=== PATIENT | female | born 1985 | race Caucasian/White ===

== ENCOUNTER 2019-04-21 06:58 | Inpatient (IN) | payer OTHER ==
--- NOTE | 2019-04-19 12:18 | HP ---
DATE OF ADMISSION: 04/27/2019 HISTORY OF PRESENT ILLNESS: The patient is a 33-year-old with para 0, 0-0-2-0 who is with a due date of 04/27/2019 with breech presentation now scheduled for primary for breech presentation. PAST MEDICAL HISTORY: Consistent with sleep apnea as well as mild anemia. History of elevated blood pressure; however, did not declare definite hypertension or preeclampsia. PAST GYNECOLOGICAL HISTORY: She denies any history of cysts, fibroids or STDs. MEDICATIONS: 1. She is taking iron twice a day. 2. Protonix. 3. vitamins. ALLERGIES: NO KNOWN ALLERGIES. SOCIAL HISTORY: She denies toxic habits. PAST OBSTETRICAL HISTORY: Consistent with 1 induced and 1 spontaneous . REVIEW OF SYSTEMS: sleep apnea. LABORATORY TESTS: Records consistent with HIV negative, hepatitis B, hepatitis C was negative. T4, T3, TSH was normal. Blood type is A positive, antibody negative, rubella immune, rubella equivocal, VDRL nonreactive. Urine culture was negative. Gonorrhea and chlamydia was negative and GCT was 136. GTT was normal. Last CBC on 03/29/2019 consistent hemoglobin of 12.2, hematocrit of 35.9, and GBS was positive. PHYSICAL EXAMINATION: GENERAL: I saw the patient last on 04/19/2019. At that time, she was 38 weeks and 6 days. VITAL SIGNS: Her blood pressure was 137/66+1 protein in the urine. Urine was negative for glucose, she appeared to be in no apparent distress. HEART: Regular rate and rhythm. LUNGS: Clear to auscultation bilaterally. ABDOMEN: Gravid, nontender. EXTREMITIES: No clubbing, cyanosis, or edema. PELVIC: Deferred. Breech per ultrasound. PLAN: This is a 33-year-old with para 0-0-2-0 at 38 weeks and 6 days scheduled for primary for breech presentation at 39 weeks and 1 day. Patient understands the risks of the procedure such as risk of bleeding, infection, damage to internal organs, transfusion, anesthesia. She understands the benefit of the procedure would be to decrease maternal morbidity and mortality secondary to breech delivery. She has been attempting to do a vaginal trial which I do not recommend. All questions answered. Dictated By: RAMBO FERNANDEZ MD, RA/DIANE Conf#: [id number] DID#: [id number] MTDD
[~2019-04-21] VITALS: Ht 162.6 cm; Wt 91.8 kg
[2019-04-21] MEDS ORDERED: OXYTOCIN 30 UNITS/LR 500 ML IV PRN ×2 (07:30→10:00)
[2019-04-21] MEDS ORDERED: CEFAZOLIN 2 GM/50 ML (PMX) 50 ML IVPB SCH (07:30)
[2019-04-21] MEDS ORDERED: METHYLERGONOVINE 0.2 MG INJ IM PRN ×2 (07:30→10:00)
[2019-04-21] MEDS ORDERED: OXYTOCIN 30 UNITS/LR 500 ML IV SCH ×2 (07:30→09:50)
[2019-04-21] MEDS ORDERED: MISOPROSTOL 200 MCG TAB PR PRN ×2 (07:30→10:00)
[2019-04-21] MEDS ORDERED: CARBOPROST 250 MCG INJ IM PRN ×2 (07:30→10:00)
[2019-04-21 07:48] VITALS: Ht 162.6 cm; Wt 91.8 kg
[2019-04-21] MEDS: LACTATED RINGER'S 1,000 ML IV SCH ×2 (08:28→15:25)
[2019-04-21] MEDS ORDERED: CITRIC ACID/NA CITRATE 30 ML CUP PO ONE (08:30)
[2019-04-21] MEDS ORDERED: OXYTOCIN 30 UNITS/LR 500 ML BAG IV ONE (09:48)
[2019-04-21] MEDS ORDERED: LIDOCAINE 1%/EPI 30 ML INJ ONE (09:48)
[2019-04-21] MEDS ORDERED: morphine SULFATE/PF (10 MG/10 ML) INJ ONE (09:48)
[2019-04-21] MEDS ORDERED: EPHEDrine 25 MG/5 ML SYG ONE (09:48)
[2019-04-21] MEDS ORDERED: ONDANSETRON 4 MG INJ ONE (09:57)
[2019-04-21] MEDS ORDERED: NACL 0.9% 3 ML SYG IV SCH (10:00)
[2019-04-21] MEDS ORDERED: KETOROLAC 30 MG INJ IV PRN ×2 (10:00→10:30)
[2019-04-21] MEDS ORDERED: LACTATED RINGER'S 1,000 ML IV ONE (10:10)
[2019-04-21] MEDS: CEFAZOLIN 1 GM/50 ML (PMX) 50 ML IVPB SCH ×2 (10:10→18:08)
--- NOTE | 2019-04-21 10:10 | PREAC ---
Date/Time of Note Date/Time of Note DATE: 04/21/19 TIME: 10:05 Anesthesia Eval and Record Evaluation Time Pre-Procedure Interview DATE: 04/21/19 TIME: 09:40 Age 33 Sex female NPO: 8 hrs Preoperative diagnosis iup @ 39 wks., , contractions, h/o gerd, gomez, breech presentation Planned procedure primary c/s Past Medical History Past Medical History: Includes Pulm: Sleep Apnea GI: GERD : : (1), Para: (0), Gestational age: (39.5 wks.) Surgery & Anesthesia Issues No known issue Meds Anticoagulation: No Beta Storm within 24 hr: No Reason Beta Storm not given: Pt. not on B-Storm Current Medications Lactated Ringer's 1,000 ml @ 125 mls/hr Q8H IV Last administered on 04/21/19at 08:28; Admin Dose 125 MLS/HR; Start 04/21/19 at 07:25 Cefazolin Sodium/ Dextrose 50 ml @ 100 mls/hr ONCE IVPB ; Start 04/21/19 at 07:30 Oxytocin/Lactated Ringer's 500 ml @ 125 mls/hr POST IV ; Start 04/21/19 at 07:30 Misoprostol (Cytotec) 1,000 mcg ONCE PRN LA .VAGINAL BLEEDING; Start 04/21/19 at 07:30 IV Flush (NS 3 ml) 3 ml PER PROTOCOL IV ; Start 04/21/19 at 10:00 Cefazolin Sodium 50 ml @ 100 mls/hr Q8H IVPB ; Start 04/21/19 at 10:00; Stop 04/22/19 at 02:29 Oxytocin/Lactated Ringer's 500 ml @ 50 mls/hr Q10H IV ; Start 04/21/19 at 09:50; Stop 04/21/19 at 19:49 Acetaminophen/ Hydrocodone Bitart ([place] (5/325)) 1 tab Q4H PRN PO .PAIN 4-6; Start 04/21/19 at 10:00 Acetaminophen/ Hydrocodone Bitart ([place] (5/325)) 2 tab Q4H PRN PO .PAIN 7-10; Start 04/21/19 at 10:00 Ibuprofen (Motrin) 600 mg Q6 PRN PO pain; Start 04/21/19 at 10:00; Status Hold Oxytocin/Lactated Ringer's 500 ml @ 0 mls/hr ONCE PRN IV .VAGINAL BLEEDING; Start 04/21/19 at 10:00 Methylergonovine Maleate (Methergine) 0.2 mg ONCE PRN IM .VAGINAL BLEEDING; Start 04/21/19 at 10:00 Carboprost Tromethamine (Hemabate) 250 mcg ONCE PRN IM .VAGINAL BLEEDING; Start 04/21/19 at 10:00 Misoprostol (Cytotec) 1,000 mcg ONCE PRN LA .VAGINAL BLEEDING; Start 04/21/19 at 10:00 Ketorolac Tromethamine (Toradol) 30 mg Q6H PRN IV PAIN LEVEL 1-3; Start 04/21/19 at 10:00 Meds reviewed: Yes Allergies Coded Allergies: No Known Allergy (Unverified , 04/21/19) Allergies Reviewed: Yes Labs/Studies Labs Reviewed: Reviewed by anesthesiologist Result Diagram: 04/21/19 0520 Laboratory Tests 04/21/19 05:20 Blood Bank Test 04/21/19 05:20 Antibody Screen NEGATIVE Blood Type A POSITIVE Rh Immune Globulin Candidate NO test: Positive Studies: ECG (n/a), CXR (n/a) Pre-procedure Exam Airway: Adequate mouth opening, Adequate thyromental dist Mallampati: Mallampati II Teeth: Normal Lung: Normal Heart: Normal ASA Physical Status ASA physical status: 3 Emergency: E Planned Anesthetic General/MAC: MAC Neuraxial: Spinal Planned Pain Management Sub-arachniod narcotics, Parenteral pain med, Local by surgeon Pre-operative Attestations Prior to commencing anesthesia and surgery, the patient was re-evaluated, there was verification of: *The patient's identity *The results of appropriate recent lab work and preoperative vital signs *The above evaluation not changing prior to induction *Anesthetic plan, risk benefits, alternative and complications discussed with patient/family; questions answered; patient/family understands, accepts and wishes to proceed. Tree Topper used KENNEDY BELLO MD Apr 21, 2019 10:10
[2019-04-21] MEDS ORDERED: OXYTOCIN 10 UNIT INJ ONE (10:17)
[2019-04-21] MEDS ORDERED: METOCLOPRAMIDE 10 MG INJ ONE (10:17)
[2019-04-21] MEDS ORDERED: MIDAZOLAM 1 MG/ML 2 ML INJ ONE (10:17)
[2019-04-21] MEDS ORDERED: LR IV ONE (10:27)
[2019-04-21] MEDS ORDERED: OXYTOCIN IV ONE (10:27)
[2019-04-21] MEDS ORDERED: HYDROmorphONE 0.5 MG/0.5 ML SYG IV PRN ×2 (10:30)
[2019-04-21] MEDS ORDERED: DIPHENHYDRAMINE 50 MG INJ IV PRN ×2 (10:30)
[2019-04-21] MEDS ORDERED: MEPERIDINE 25 MG INJ IV PRN (10:30)
[2019-04-21] MEDS ORDERED: EPHEDrine 25 MG/5 ML SYG IV PRN (10:30)
[2019-04-21] MEDS ORDERED: ONDANSETRON 4 MG INJ IV PRN (10:30)
[2019-04-21] MEDS ORDERED: NALBUPHINE HCL (10 MG/1 ML) INJ IV PRN (10:30)
[2019-04-21] MEDS ORDERED: ZOLPIDEM 5 MG TAB PO PRN (10:30)
[2019-04-21] MEDS ORDERED: NALOXONE (0.4 MG/ML) INJ IV PRN (10:30)
[2019-04-21] MEDS ORDERED: MIDAZOLAM 1 MG/ML 2 ML INJ IV PRN (10:30)
--- NOTE | 2019-04-21 10:44 | QN ---
Documentation Comment see op note [id number] RAMBO FERNANDEZ M.D. Apr 21, 2019 10:44
[2019-04-21 13:30] VITALS: BP 127/77; PULSE 81; RESP 19
[2019-04-21 14:30] VITALS: BP 123/67; PULSE 72; RESP 18
[2019-04-21 16:00] VITALS: BP 127/71; PULSE 98; RESP 20
[2019-04-21] MEDS ORDERED: BUPROPION 75 MG TAB PO ONE (16:30)
--- NOTE | 2019-04-21 17:14 | PAC ---
Date/Time of Note Date/Time of Note DATE: 04/21/19 TIME: 17:14 Post-Anesthesia Notes Post-Anesthesia Note Last documented vital signs Vital Signs Date Temp Pulse Resp B/P (MAP) Pulse Ox O2 O2 Flow FiO2 Time Delivery Rate 04/21/19 98.4 98 20 127/71 99 Room Air 16:00 (89) Activity: WNL Respiratory function: WNL Cardiovascular function: WNL Mental status: Baseline Pain reasonably controlled: Yes Hydration appropriate: Yes Nausea/Vomiting absent: Yes KENNEDY BELLO MD Apr 21, 2019 17:14
[2019-04-21] MEDS: BUPROPION (XL) 150 MG TAB PO SCH (18:08)
[2019-04-21 19:50] VITALS: BP 124/61; PULSE 98; RESP 18
[2019-04-21 23:50] VITALS: BP 115/62; PULSE 101; RESP 19
--- NOTE | 2019-04-22 00:20 | OPPN ---
Date/Time of Note Date/Time of Note DATE: 04/22/19 TIME: 00:18 Anesthesia Follow up Anesthesia Follow up Last documented vital signs Vital Signs Date Temp Pulse Resp B/P (MAP) Pulse Ox O2 O2 Flow FiO2 Time Delivery Rate 04/21/19 98.4 98 18 124/61 97 Room Air 19:50 (82) Respiratory function: WNL Cardiovascular function: WNL Comments S: pt. is pod #1. min. bt pain. min. n/v. min. need for bt pain meds ie nsaids/opiates. ambulating. O: vss. afeb. A: min. bt pain. sec. to it msO4. P: no complications. KENNEDY BELLO MD Apr 22, 2019 00:20
--- NOTE | 2019-04-22 00:31 | OPR ---
DATE OF OPERATION: 04/21/2019 PREOPERATIVE DIAGNOSIS: A 33-year-old with para 0, 0-0-2-0 at 39 weeks , breech presentatio n. POSTOPERATIVE DIAGNOSIS: A 33-year-old with para 0, 0-0-2-0 at 39 weeks , breech presentati on. PROCEDURE: Primary via Pfannenstiel skin incision. SURGEON: Dr. Fernandez. SENIOR SALES OPERATIONS MANAGER: Dr. Lance. ANESTHESIA: Spinal anesthesia, 2 grams of Ancef was given. COMPLICATIONS: None. FINDINGS: Baby girl, martina breech. Normal appearing ovaries and the tubes and uterus. DISPOSITION: Stable to recovery room. ESTIMATED BLOOD LOSS: 800 mL. URINE OUTPUT: Clear urine at the end of the end of the procedure. Two grams of Ancef were given prior to the procedure. DESCRIPTION OF PROCEDURE: After the risks, benefits and alternatives were discussed with the patient , the patient signed consent. She was taken to the operating room where spinal anesthesia was found to be adequate. She was then prepared and draped in normal sterile fashion in dorsal supine position with a leftward tilt. A Pfannenstiel skin incision then made with a scalpel and carried throughout the underlying layer of the fascia with the Bovie. The fascia was then incised medially, extended la terally using the Bovie instrument. The fascia was then superiorly and inferiorly from the rectus abdominal muscles using the Bovie instrument. Rectus abdominal muscles were then l aterally. The peritoneum entered sharply, stretched laterally manually and sharply. Bladder flap wa s then created using the Metzenbaum scissors. A bladder blade was then inserted to protect the bladd er. Uterus incision then created using the scalpel and carried laterally manually. was found to be in martina breech presentation, was removed without any complications. Nose and mouth suctioned , cord clamped and cut. Infant was handed off to the waiting nurse. Cord blood collected. Placenta was removed manually. Uterus then exteriorized and cleared of all clots and debris. Uterus incisio n was then repaired using #1 chromic stitch and then in running locked fashion. Good approximation a nd good hemostasis was noted. Gutters were then cleared of all clots and debris. The uterus was the n placed back into the pelvis. Rectus abdominal muscles and peritoneum were then reapproximated usin g 2-0 chromic stitch interrupted figure. Fascia was then reapproximated using #1 Vicryl stitch in a running fashion. Subcutaneous layer irrigated and dried. Subcutaneous layer was then reapproximated using 2-0 plain stitch in interrupted figure. Skin was then closed using the stapler. Abdominal pa ds placed in the incision to create tamponade. All instrument count, lap count, and needle count fou nd to be correct x3. The patient was taken back to the recovery room in stable condition and awakene d. Dictated By: RAMBO FERNANDEZ MD, RA/DIANE Conf#: [id number] DID#: [id number]
[2019-04-22] MEDS: CEFAZOLIN 1 GM/50 ML (PMX) 50 ML IVPB SCH (01:52)
[2019-04-22] MEDS: LACTATED RINGER'S 1,000 ML IV SCH (01:54)
[2019-04-22 03:58] VITALS: BP 124/72; PULSE 95; RESP 19
[2019-04-22 08:52] VITALS: BP 119/65; PULSE 94; RESP 18
[2019-04-22] MEDS: BUPROPION (XL) 150 MG TAB PO SCH (09:06)
[2019-04-22] MEDS ORDERED: CEFAZOLIN 1 GM/50 ML (PMX) 50 ML IVPB SCH (10:00)
--- NOTE | 2019-04-22 11:41 | QN ---
Documentation Comment pt is feeling well CBC stable VSS Plan continue current care RAMBO CLARK M.D. Apr 22, 2019 11:41
[2019-04-22 13:00] VITALS: BP 121/65; PULSE 95; RESP 17
[2019-04-22 15:15] VITALS: BP 122/59; PULSE 98; RESP 17; RESP 18
[2019-04-22] MEDS: IBUPROFEN 600 MG TAB PO PRN (15:19)
[2019-04-22] MEDS ORDERED: WITCH HAZEL/GLYCERIN PAD PR PRN (16:30)
[2019-04-22] MEDS ORDERED: BENZOCAINE 20% 56 ML SPRAY TOP PRN (16:30)
[2019-04-22] MEDS: LANOLIN HPA 1 PKT TOP PRN (18:44)
[2019-04-22 19:35] VITALS: BP 134/70; PULSE 110; RESP 19
[2019-04-22] MEDS: HYDROCODONE/APAP (5/325) TAB PO PRN (19:35)
[2019-04-23] MEDS: HYDROCODONE/APAP (5/325) TAB PO PRN ×4 (00:06→21:16)
[2019-04-23 03:30] VITALS: BP 125/74; PULSE 98; RESP 20
[2019-04-23 08:00] VITALS: BP 134/80; PULSE 94; RESP 18
[2019-04-23] MEDS: LANOLIN HPA 1 PKT TOP PRN (08:30)
[2019-04-23] MEDS: BUPROPION (XL) 150 MG TAB PO SCH (08:31)
[2019-04-23 16:00] VITALS: BP 134/86; PULSE 94; RESP 18
--- NOTE | 2019-04-23 19:14 | QN ---
Documentation Comment see d/c note [id number] RAMBO FERNANDEZ M.D. Apr 23, 2019 19:14
[2019-04-23 19:30] VITALS: BP 136/78; PULSE 98; RESP 18
[2019-04-23] MEDS: IBUPROFEN 600 MG TAB PO PRN (20:00)
--- NOTE | 2019-04-23 23:33 | DS ---
DATE OF ADMISSION: 04/21/2019 DATE OF DISCHARGE: HOSPITAL COURSE: The patient had a 2 days ago. Please see operative report for the surger y. On postop day #1, she was doing well. Vital signs stable. CBC was stable. She was encouraged t o ambulate and use pain medication p.r.n. pain. Her CBC was stable. On postoperative day #2 she was doing well, passing gas, ambulating. Incision was healing well. The patient will be discharged javi e tomorrow, on postoperative day #3, with prescription for [place] and Motrin. She will come to see me in the office on Tuesday for staple removal. Dictated By: RAMBO FERNANDEZ MD, RA/DIANE Conf#: [id number] DID#: [id number]
[2019-04-24 04:35] VITALS: BP 112/56; PULSE 83; RESP 18
[2019-04-24] MEDS: IBUPROFEN 600 MG TAB PO PRN (05:33)
[2019-04-24 08:30] VITALS: BP 123/72; PULSE 92; RESP 18
[2019-04-24] MEDS: HYDROCODONE/APAP (5/325) TAB PO PRN (09:10)
[2019-04-24] MEDS: BUPROPION (XL) 150 MG TAB PO SCH (10:01)
--- NOTE | 2019-04-25 16:46 | DELSUM ---
Delivery Summary A-C Datetime Report Generated by CPN: 04/25/2019 16:46 DELIVERY PERSONNEL Stacker Attendant: Yoshree, Nataliya MATERNAL INFORMATION Delivery Anesthesia: Spinal Medications in Delivery: see anesthesia Delivery QBL (ml): 500 Placenta Cultured: No Maternal Complications: None LABOR SUMMARY EDC: 04/27/2019 00:00 No. Babies in Womb: 1 Attempted: No Labor Anesthesia: None LABOR INFORMATION Reason for Induction: Not Applicable Group B Beta Strep: Not Done Antibiotics # of Doses: 1 Antibiotics Time of Last Dose: 04/21/2019 10:10 Steroids Given: None Reason Steroids Not Administered: Not Applicable MEMBRANES Membranes Rupture Method: Artificial Rupture of Membranes: 04/21/2019 10:15 Length of Rupture (hr): 0.08 Amniotic Fluid Color: Clear Amniotic Fluid Amount: Moderate Amniotic Fluid Odor: None STAGES OF LABOR Stage 3 hr: 0 Stage 3 min: 5 CSECTION DELIVERY Primary Indication: Breech Presentation Secondary Indication: N/A CSection Urgency: Non Elective CSection Incidence: Primary Labor: No Labor Elective: Nonelective CSection Incision: Lower Uterine Transverse BABY A INFORMATION Delivery Date/Time: 04/21/2019 10:20 Method of Delivery: Born in Route : No : N/A Forceps: N/A Vacuum Extraction: N/A Shoulder Dystocia : N/A SHOULDER DYSTOCIA BABY A Delivery Date/Time: 04/21/2019 10:20 PRESENTATION/POSITION BABY A Presentation: Breech Cephalic Presentation: N/A Breech Presentation: Complete PLACENTA INFORMATION BABY A Placenta Delivery Time : 04/21/2019 10:25 Placenta Method of Delivery: Manual Removal Placenta Status: Delivered SCORES BABY A Heart Rate 1 min: >100 bpm Resp Effort 1 min: Good Cry Reflex Irritability 1 min: Cough/Sneeze/Pulls Away Muscle Tone 1 min: Active Motion Color 1 min: Body [place], Extremit Blue Resuscitation Effort 1 min: Tactile Stimulation SCORE 1 MIN: 9 Heart Rate 5 min: >100 bpm Resp Effort 5 min: Good Cry Reflex Irritability 5 min: Cough/Sneeze/Pulls Away Muscle Tone 5 min: Active Motion Color 5 min: Body [place], Extremit Blue Resuscitation Effort 5 min: Tactile Stimulation SCORE 5 MIN: 9 INFORMATION BABY A Gestational Age at Delivery: 39.1 Gestational Status: Full Term- 39- 40.6 Weeks Outcome : Liveborn, with signs of life Infant Condition : Stable Infant Sex: Female IDENTIFICATION/MEDS BABY A ID Band Number: [id number] ID Band Location: Right Leg; Left Arm Sensor Applied: Yes Sensor Number: [id number] Sensor Location : Cord Clamp Vitamin K Given : Not Given Erythromycin Given: Not Given WEIGHT/LENGTH BABY A Infant Birthweight (gm): 3715 Weight (lb): 8 Infant Weight (oz): 3 Infant Length (in): 19.50 Infant Length (cm): 49.53 CORD INFORMATION BABY A No. Cord Vessels: 3 Nuchal Cord : N/A Cord Blood Taken: Yes Suction: Mouth; Nose ASSESSMENT BABY A Infant Complications: None Physical Findings at Delivery: Within Normal Limits Respirations: Appears Normal Electric Meter Inspector/ALS Called : No Care By: REBECCA Transferred To: Remains with Mother
--- NOTE | 2019-04-26 11:41 | HP ---
DATE OF ADMISSION: 04/21/2019 HISTORY AND PHYSICAL UPDATE UPDATE/INTERVAL NOTE: ____ secondary to breech presentation. Please note there was no brittani nge in status prior to the surgery. Dictated By: RAMBO FERNANDEZ MD, RA/DIANE Conf#: [id number] DID#: [id number]
== END 2019-04-24 15:25 | disposition home or self-care (01) | DRG 788 ==
LOC: L-D 06:58 → PP1 13:34
PROVIDERS: ADMIT Obstetrics & Gynecology; ATTEND Obstetrics & Gynecology
PROC: 10D00Z1 Extraction of Products of Conception, Low, Open Approach (ICD-10-PCS; principal; 2019-04-21 09:30)
DX: O32.1XX0 Maternal care for breech presentation, not applicable or unspecified (principal); O75.89 Other specified complications of labor and delivery; K21.9 Gastro-esophageal reflux disease without esophagitis; G47.33 Obstructive sleep apnea (adult) (pediatric); Z3A.39 39 weeks gestation of pregnancy; Z37.0 Single live birth
CPT/HCPCS: 76815; 85025; 85610; 85730; 86592; 86850; 86900; 86901; 87340; 99464; J0690; J1885; J2250; J2274; J2405; J2590; J2765; J7120